=== PATIENT | male | born 1985 | race Caucasian/White ===

== ENCOUNTER 2024-10-02 10:54 | Emergency (ER) | payer OTHER ==
[~2024-10-02] VITALS: Ht 170.2 cm; Wt 74.0 kg
[2024-10-02] MEDS ORDERED: AMOX-580 PO (12:09)
[2024-10-02 12:19] VITALS: BP 129/66; PULSE 86; RESP 16; TEMP 98; O2SAT 99
== END 2024-10-02 12:18 | disposition home or self-care (01) ==
LOC: ER 10:55
DX: J01.00 Acute maxillary sinusitis, unspecified (principal); E11.9 Type 2 diabetes mellitus without complications
CPT/HCPCS: 99283